=== PATIENT | female | born 2005 | race Two or more races ===

== ENCOUNTER 2025-02-24 13:00 | Emergency (ER) | payer MEDICAID, SELFPAY ==
[2025-02-24 13:06] VITALS: BP 119/57; PULSE 72; RESP 18; TEMP 36.1; O2SAT 98; BMI 25.7
--- NOTE | 2025-02-24 13:24 | ED.FEMALEGU ---
HPI - Female Genitourinary General Chief complaint: Urogenital-Female Stated complaint: Pain in Private Area Related Data Allergies Allergy/AdvReac Type Severity Reaction Status Date / Time No Known Allergies Allergy Verified 02/24/25 13:14 [facility] Social History Social History Advance Directives: No Advance Directives Information Provided: No Do you have a plan to hurt others: No Plan Physical Exam Vital Signs: Vital Signs: Last Vital Signs Temp 97.0 F 02/24/25 13:06 Pulse 72 02/24/25 13:06 Resp 18 02/24/25 13:06 BP 119/57 L 02/24/25 13:06 Pulse Ox 98 02/24/25 13:06 O2 Del Method Room Air 02/24/25 13:06 BMI result Body Mass Index 25.7 Course Course Course Narrative: RME, this is a rapid medical exam performed by Ron Jara please refer to primary provider for complete H&P- 20-year-old female presents for evaluation of pelvic discomfort. She will be started on antibiotics for bacterial vaginosis on 02/03 by her director of instruction. She went to [place] in his still complaining of symptoms. She reports that she was tested for sexually transmitted infections and was negative for gonorrhea and chlamydia. Her last menstrual cycle was also 02/03. She reports that her mom told him that the director of instruction had more result for her and she will attempt to get those results. We will defer additional testing at this time pending the patient's phone call to her director of instruction Discharge Plan Discharge Clinical Impression: Abdominal pain Patient Disposition: Left W/O Completing Treatment Discharge Date/Time: 02/24/25 14:54
--- OUTSIDE RECORDS SUMMARY | 2025-02-24 14:38 | XMS_ITS | Encounter Summary ---
Author Organization [employer] [facility] Address [address] [place] [address] [address] [place] [address] Care Team Providers Care [employer] Canning Leader Name Role Phone Unavailable Primary Care Provider Unavailabl e Encounter Details Date Type Department Care Team (Latest Contact Info) Description 08/03/2020 [facility] Dental, Provider, DDS Social History Tobacco Use Types Packs/Day Years Used Date Smoking Tobacco: Never Assessed Comments Unknown Sex and Gender Information Value Date Recorded Sex Assigned at Female 05/05/2022 10:23 AM EDT Legal Sex Female 10:23 AM EDT Gender Identity Female 05/05/2022 10:23 AM EDT Sexual Orientation Straight 05/05/2022 10 :23 AM EDT documented as of this encounter Plan of Treatment Not on file documented as of this encounter Visit Diagnoses Not on filedocumented in this encounter
== END 2025-02-24 14:54 | disposition left against medical advice (07) ==
LOC: HO.ED 14:36
PROVIDERS: Emergency Provider Emergency Medicine; PCP Nurse Practitioner Pediatrics
DX: R10.2 Pelvic and perineal pain (principal)
CPT/HCPCS: 99281